=== PATIENT | male | born 1975 | race Caucasian/White ===

== ENCOUNTER 2019-07-15 13:02 | Emergency (ER) | payer OTHER, BC ==
[2019-07-15 14:59] VITALS: BP 152/89
== END 2019-07-15 14:59 | disposition home or self-care (01) | DRG 605 ==
LOC: ED 13:02
DX: S80.02XA Contusion of left knee, initial encounter (principal); W31.89XA Contact with other specified machinery, initial encounter; Y92.89 Other specified places as the place of occurrence of the external cause; Y99.0 Civilian activity done for income or pay

== ENCOUNTER 2019-10-12 | Emergency (ER) | payer BC ==
[2019-10-12] MEDS ORDERED: KEFLEX500 M1 PO (18:01)
== END 2019-10-12 18:20 | disposition home or self-care (01) | DRG 603 ==
DX: L03.116 Cellulitis of left lower limb (principal); S90.862A Insect bite (nonvenomous), left foot, initial encounter; F17.290 Nicotine dependence, other tobacco product, uncomplicated; W57.XXXA Bitten or stung by nonvenomous insect and other nonvenomous arthropods, initial encounter

== ENCOUNTER 2020-01-08 | Emergency (ER) | payer SELFPAY ==
[~2020-01-08] MED LIST: KEFLEX500 M1 PO
[2020-01-08] MEDS ORDERED: IBUPROFEN600 MG PO (20:19)
[2020-01-08] MEDS ORDERED: KEFLEX500 M1 PO (20:19)
== END 2020-01-08 20:59 | disposition home or self-care (01) | DRG 558 ==
DX: M77.9 Enthesopathy, unspecified (principal); F17.220 Nicotine dependence, chewing tobacco, uncomplicated

== ENCOUNTER 2021-04-04 09:09 | Emergency (ER) | payer OTHER ==
[~2021-04-04] VITALS: Ht 182.9 cm; Wt 120.4 kg
[~2021-04-04 09:09] MED LIST changes: +IBUPROFEN600 MG PO
[2021-04-04 09:19] VITALS: BP 135/87
[2021-04-04] MEDS ORDERED: HYDROCO/APAP1 TA9 PO (10:33)
== END 2021-04-04 10:56 | disposition home or self-care (01) | DRG 556 ==
LOC: ED 09:09
DX: M25.562 Pain in left knee (principal); F17.200 Nicotine dependence, unspecified, uncomplicated; X50.0XXA Overexertion from strenuous movement or load, initial encounter; Y93.89 Activity, other specified; Y92.89 Other specified places as the place of occurrence of the external cause; Y99.0 Civilian activity done for income or pay
CPT/HCPCS: L1830